=== PATIENT | female | born 1965 | race Caucasian/White ===

== ENCOUNTER → 2017-04-15 | Day surgery (SDC) | payer OTHER ==
[~2017-04-15] MED LIST: DIOVAN160 M1 PO; TAMOXIFEN CITRA20 MG PO; TOPROL XL50 MG PO
== END | disposition home or self-care (01) ==
LOC: ADM 04-13 08:30 → CIR.AMB 07:00
DX: N84.0 Polyp of corpus uteri (principal); N93.8 Other specified abnormal uterine and vaginal bleeding; Z30.432 Encounter for removal of intrauterine contraceptive device